=== PATIENT | female | born 1950 | race Caucasian/White ===

== ENCOUNTER 2017-02-02 06:50 | Day surgery (SDC) | payer MEDICAID ==
[~2017-02-02] VITALS: Ht 167.6 cm; Wt 130.2 kg
[~2017-02-02 06:50] MED LIST: CYCL1TAB18 PO; ERGO1CAP6 PO; IBUP400T21 PO; LISI-646; LORA-205; LOVA20TA63; METF-372; NITR0.4S29 SL; SITA50TA PO; TRIA25CA PO
[2017-02-02] MEDS ORDERED: IODIXANOL 320MG/ML 100ML BTL IV ONE ×2 (07:10→08:51)
[2017-02-02] MEDS ORDERED: LIDOCAINE 2%HCL (LOCAL ANESTH.) INJ 20ML MDV ONE ×2 (07:10→08:52)
[2017-02-02] MEDS ORDERED: MIDAZOLAM HCL 1MG/1ML-2 ML VIAL ONE (07:35)
[2017-02-02] MEDS ORDERED: fentaNYL CITRATE 100 MCG/2 ML VL ONE (07:35)
[2017-02-02] MEDS ORDERED: SODIUM CHL 0.9% 0 ML ONE (07:36)
[2017-02-02] MEDS ORDERED: VERAPAMIL 2.5MG/ML INJ 2ML VIAL IV ONE (07:36)
[2017-02-02] MEDS ORDERED: ANGIOMAX 250 MG VIAL IV ONE (07:37)
[2017-02-02] MEDS ORDERED: HEPARIN IN NS 1000Units/500mL 0 ML ONE (08:52)
[2017-02-02] MEDS ORDERED: IOHEXOL 350 MG/ML 100ML IJ ONE (09:35)
[2017-02-02] MEDS ORDERED: HEPARIN SODIUM (PORCINE) 5000 UNITS/ML 1ML VIAL ONE (09:48)
== END 2017-02-02 12:55 | disposition home or self-care (01) ==
LOC: CATH 06:50
PROVIDERS: ATTEND Internal Medicine
DX: I20.0 Unstable angina (principal); F41.9 Anxiety disorder, unspecified; I10 Essential (primary) hypertension; E11.9 Type 2 diabetes mellitus without complications
CPT/HCPCS: 93458; C1769; C1894; J1644; J3010; J7030; Q9967; 82962; 99152; 99153; J2250